=== PATIENT | female | born 1940 | race Caucasian/White ===

== ENCOUNTER → 2020-11-22 | Outpatient (CLI) | payer OTHER | LOC: EXRD 15:27 | DX: J90 Pleural effusion, not elsewhere classified (principal); R91.8 Other nonspecific abnormal finding of lung field | CPT/HCPCS: 71046 ==

== ENCOUNTER → 2021-01-09 | Outpatient (CLI) | payer OTHER | LOC: EXRD 14:10 | DX: J90 Pleural effusion, not elsewhere classified (principal) | CPT/HCPCS: 71046 ==

== ENCOUNTER 2021-01-28 09:04 | Inpatient (IN) | payer OTHER ==
[~2021-01-28] VITALS: Ht 165.1 cm; Wt 73.9 kg
[2021-01-28 10:04] LABS: HEMOGLOBIN 8.4 gm/dl (12.3-15.3); RED BLOOD COUNT 2.84 M/UL (4.00-5.10)
[2021-01-28] MEDS ORDERED: SPIRONOLACTONE25 MG PO (17:27)
[2021-01-28] MEDS ORDERED: NITRO-DUR1 EAC3 TOP (17:28)
[2021-01-28] MEDS ORDERED: SODIUM BICARBO650 MG PO (17:29)
[2021-01-28] MEDS ORDERED: AMLODIPINE BESYL5 MG PO (17:29)
[2021-01-28] MEDS ORDERED: LISINOPRIL5 MG PO (17:30)
[2021-01-28] MEDS ORDERED: LEXAPRO10 MG PO (17:30)
[2021-01-28] MEDS ORDERED: ELIQUIS5 MG PO (17:30)
[2021-01-28] MEDS ORDERED: LEVOTHYROXINE25 MCG PO (17:30)
[2021-01-28] MEDS ORDERED: LASIX40 MG PO (17:31)
[2021-01-28] MEDS ORDERED: BASAGLAR K100 UNIT/1 INJ (17:31)
[2021-01-28] MEDS ORDERED: TYLENOL EXTRA500 MG PO (17:32)
[2021-01-29 09:00] LABS: HEMOGLOBIN 7.1 gm/dl (12.3-15.3); WHITE BLOOD COUNT 7.7 K/UL (4.5-11.0)
[2021-01-29 09:03] LABS: RED BLOOD COUNT 2.49 M/UL (4.00-5.10)
[2021-01-29 11:52] LABS: HEMOGLOBIN 7.1 gm/dl (12.3-15.3)
[2021-01-30 07:51] LABS: RED BLOOD COUNT 2.45 M/UL (4.00-5.10); WHITE BLOOD COUNT 7.1 K/UL (4.5-11.0)
[2021-01-30 11:00] LABS: HEMOGLOBIN 7.4 gm/dl (12.3-15.3)
[2021-01-30] MEDS ORDERED: LEVOFLOXACIN500 MG PO (19:13)
[2021-01-30 19:44] LABS: HEMOGLOBIN 8.9 gm/dl (12.3-15.3)
--- NOTE | 2021-01-31 03:34 | NUR ---
PT IS READY FOR DISCHARGE. WHEN CALLED THE EARLIER TO SEE WHEN HE WOULD BE HERE TO GET . HE STATED HE WAS TOLD AT 530PM SHE WOULDNT BE DISCHARGED TODAY SO HE LEFT FOR HOME WHICH IS IN [facility]. STATED IF HE WOULD HAVE BEEN TOLD OF DISCHARGE THEY WOULD HAVE JUST STAYED. STATES HE AND SON WILL COME BACK IN THE AM. HE ASKED IF SHE WOULD BE GETTING DIALYSIS BEFORE BEING DISCHARGED. ADVISED HIM I WAS UNSURE ABOUT ANY DIALYSIS HERE IN THE AM BUT WOULD PASS IT ALONG TO THE DAY SHIFT NURSE. REPORTED SITUATION TO HOUSE.
[2021-01-31 04:12] LABS: ACINETOBACTER BAUMANNII Not Detected (Negative); CANDIDA ALBICANS Not Detected (Negative); CANDIDA KRUSEI Not Detected (Negative); CANDIDA TROPICALIS Not Detected (Negative); ENTEROCOCCUS Not Detected (Negative); ESCHERICHIA COLI Not Detected (Negative); HAEMOPHILUS INFLUENZAE Not Detected (Negative); KLEBSIELLA OXYTOCA Not Detected (Negative); KLEBSIELLA PNEUMONIAE Not Detected (Negative); KPC-CARBAPENEM-RESISTANCE GENE Not Detected (Negative); PROTEUS Not Detected (Negative); PSEUDOMONAS AERUGINOSA Not Detected (Negative); SERRATIA MARCESANS Not Detected (Negative); STAPHYLOCOCCUS AUREUS Not Detected (Negative); STREP AGALACTIAE (GROUP B) Not Detected (Negative); STREP PYOGENES (GROUP A) Not Detected (Negative); STREPTOCOCCUS Not Detected (Negative); vanA/B (VANCOMYCIN RESIST GENE Not Detected (Negative)
[2021-01-31 04:14] LABS: mecA (METHICILLIN RESIST GENE DETECTED (Negative)
[2021-01-31 04:15] LABS: STAPHYLOCOCCUS DETECTED (Negative)
[2021-01-31 07:33] LABS: HEMOGLOBIN 9.3 gm/dl (12.3-15.3); WHITE BLOOD COUNT 8.3 K/UL (4.5-11.0)
[2021-01-31 07:36] LABS: RED BLOOD COUNT 3.16 M/UL (4.00-5.10)
[2021-01-31 08:14] LABS: HBSAG SCREEN Negative (Negative); HEP A AB, IGM Negative (Negative); HEP B CORE AB, IGM Negative (Negative); HEP C VIRUS AB <0.1 (0.0-0.9)
[2021-01-31] MEDS ORDERED: MACRODANTIN100 MG PO (10:26)
== END 2021-01-31 15:56 | disposition home health service (06) | DRG 314 ==
LOC: ER1 09:04 → CDU 11:14 → M/S 11:14
PROVIDERS: Internal Medicine Nephrology; Physician Assistant; Surgery; ADMIT Internal Medicine
PROC: 02HV33Z Insertion of Infusion Device into Superior Vena Cava, Percutaneous Approach (ICD-10-PCS; 2021-01-28)
PROC: B5181ZA Fluoroscopy of Superior Vena Cava using Low Osmolar Contrast, Guidance (ICD-10-PCS; 2021-01-28)
PROC: B548ZZA Ultrasonography of Superior Vena Cava, Guidance (ICD-10-PCS; 2021-01-28)
PROC: 5A1D70Z Performance of Urinary Filtration, Intermittent, Less than 6 Hours Per Day (ICD-10-PCS; 2021-01-28)
PROC: 0JH63XZ Insertion of Tunneled Vascular Access Device into Chest Subcutaneous Tissue and Fascia, Percutaneous Approach (ICD-10-PCS; principal; 2021-01-28 15:40)
PROC: 30233N1 Transfusion of Nonautologous Red Blood Cells into Peripheral Vein, Percutaneous Approach (ICD-10-PCS; 2021-01-30)
PROC: 5A1D70Z Performance of Urinary Filtration, Intermittent, Less than 6 Hours Per Day (ICD-10-PCS; 2021-01-31)
DX: T82.590A Other mechanical complication of surgically created arteriovenous fistula, initial encounter (principal); N18.6 End stage renal disease; Z20.822 Contact with and (suspected) exposure to COVID-19; I12.0 Hypertensive chronic kidney disease with stage 5 chronic kidney disease or end stage renal disease; J90 Pleural effusion, not elsewhere classified; I69.354 Hemiplegia and hemiparesis following cerebral infarction affecting left non-dominant side; N25.81 Secondary hyperparathyroidism of renal origin; N30.00 Acute cystitis without hematuria; D62 Acute posthemorrhagic anemia; E11.22 Type 2 diabetes mellitus with diabetic chronic kidney disease; E11.649 Type 2 diabetes mellitus with hypoglycemia without coma; D63.1 Anemia in chronic kidney disease; I25.10 Atherosclerotic heart disease of native coronary artery without angina pectoris; K21.9 Gastro-esophageal reflux disease without esophagitis; G89.4 Chronic pain syndrome; E03.9 Hypothyroidism, unspecified; E78.5 Hyperlipidemia, unspecified; Y84.0 Cardiac catheterization as the cause of abnormal reaction of the patient, or of later complication, without mention of misadventure at the time of the procedure; Z95.1 Presence of aortocoronary bypass graft; Z79.4 Long term (current) use of insulin; Z90.49 Acquired absence of other specified parts of digestive tract; Z88.0 Allergy status to penicillin
CPT/HCPCS: 36415; 71045; 77001; 80048; 80053; 80074; 81001; 82962; 85014; 85018; 85025; 86850; 86900; 86901; 86920; 87040; 87077; 87086; 87150; 87186; 90935; 93005; 99285; C1750; J1100; J1642; J1956; J2001; J2405; J2704; J2997; J3370; J7040; J7070; J7120; P9016; U0002